=== PATIENT | male | born 1990 | race Caucasian/White ===

== ENCOUNTER 2020-11-10 15:24 | Emergency (ER) | payer BC, SELFPAY ==
[2020-11-10 15:31] VITALS: BP 184/81; PULSE 107; RESP 18; TEMP 36.7; O2SAT 99
[2020-11-10 15:37] VITALS: BP 184/81; PULSE 107; RESP 18; TEMP 36.7; O2SAT 99
--- NOTE | 2020-11-10 15:40 | ED.DENTAL ---
HPI - Dental/Oral General Chief complaint: Dental/Oral Stated complaint: tooth pain Time Seen by Provider: 11/10/20 15:43 Source: patient and RN notes reviewed Mode of arrival: ambulatory Limitations: no limitations History of Present Illness HPI Narrative: 30 year old male who presents to [facility] with 2 day history of right sided facial swelling and 6 month history of broken tooth #5. Patient states that he also has problems with his wisdom teeth on the right lower and left upper but no pain at the present time. Patient states that he has been taking Ibuprofen for his pain with pain tolerable with medication. Patient is unable to get into a dentist at this time due to finances. MD Complaint: tooth pain Location: Tooth # (#5) Onset (ago): day(s) (2days of facial swelling and 6 month of broken tooth) Duration: constant Severity scale (1-10): 3 Relieving factors: NSAIDs Exacerbating factors: chewing Context: history of dental caries and poor dental care Associated symptoms: gum swelling and other (Facial swelling) Treatment prior to arrival: other (Ibuprofen) Related Data Allergies Allergy/AdvReac Type Severity Reaction Status Date / Time No Known Allergies Allergy Verified 11/10/20 15:37 Review of Systems Review of Systems: Narrative: CONSTITUTIONAL: Denies fever, chills, or sweats. EYES: Denies visual changes, redness, or discharge. ENT: Denies rhinorrhea, congestion, sore throat, or otalgia.positive for right upper facial swellling and #5 tooth dental pain with tooth broken CARDIOVASCULAR: Denies chest pain, palpitations, or edema. RESPIRATORY: Denies cough or dyspnea. GASTROINTESTINAL: Denies abdominal pain, nausea, vomiting, or diarrhea. GENITOURINARY: Denies dysuria or hematuria. SKIN: Denies rash or itching. MUSCULOSKELETAL: Denies back pain, joint pain, or myalgia. NEUROLOGIC: Denies headache, numbness, or weakness. PSYCHIATRIC: Denies anxiety or depression. All systems reviewed & are unremarkable except as noted in HPI and below PMFSH Past Medical History Medical History (Updated 11/11/20 @ 00:00 by Background Daemon) History of dental problems Surgical History Surgical History (Updated 11/10/20 @ 16:12 by Moriah Pritchett NP) No history of previous surgery Family History Family History (Updated 11/10/20 @ 16:12 by Moriah Pritchett NP) Other No significant family history Social History Social History (Updated 11/10/20 @ 16:11 by Moriah Pritchett NP) Smoking status: Former smoker Tobacco type: cigarettes Smoking end date: 10/24/11 Alcohol intake: unknown Substance use: current Substance use type: marijuana Living arrangements: with family Gender identity (if verbalized by the patient): Male Comments At time of signature, agree with nursing past medical, surgical, social and family history. There is no relevant family history pertinent to the presenting complaint Exam Narrative: Exam Narrative: GENERAL: Well-appearing, well-nourished, and in no acute distress. HEAD: Normocephalic, atraumatic. EYES: PERRLA and EOMI. ENT: Nares clear, no rhinorrhea or epistaxis. Mucous membranes moist.TMs normal with good light reflex, throat pink with no swelling or exudates or tonsil enlargement, #5 tooth broken off with pain and swelling to gum and to right side of face near tooth for the past 2 days. No difficulty with swallowing or breathing, no trismus or evidence of Jayden angina. NECK: Supple.no lymphadenopathy CHEST: Clear to auscultation. No respiratory distress.SAO2 99% on room air HEART: Regular rate and rhythm. No murmur heard. Normal peripheral pulses. ABDOMEN: Soft, nontender, nondistended, normal active bowel sounds. EXTREMITIES: Normal range of motion. No edema. SKIN: Warm, dry, no rash. NEURO: No focal deficits. Alert and oriented x3. Course Vital Signs Vital signs: Vital Signs Temperature 36.7 C 11/10/20 15:31 Pulse Rate 107 H 11/10/20 15:31 Respiratory Rate
[2020-11-10 15:59] VITALS: BP 156/79
== END 2020-11-10 16:05 | disposition home or self-care (01) ==
PROVIDERS: Emergency Provider Registered Nurse
DX: K02.9 Dental caries, unspecified (principal); K08.89 Other specified disorders of teeth and supporting structures; R22.0 Localized swelling, mass and lump, head; Z87.891 Personal history of nicotine dependence
CPT/HCPCS: 99213; G0463